=== PATIENT | male | born 1945 | race African-American/Black ===

== ENCOUNTER 2016-05-07 23:22 | Inpatient (IN) | payer OTHER, MEDICARE ==
--- NOTE | ~2016-05-07 | HP ---
History And Physical [place] [address] [place]. [address] NAME: MAR DAWKINS : [birth year] STATUS : ADM IN [facility]#: [id number] AGE: 70 ADM/REG DATE : 05/08/16 MR#: [id number] REPORT SERV DATE: 05/08/16 DICTATED BY: OMARI NOVA DATE: 05/08/16 REPORT STATUS : Draft TRANSCRIBED BY: MODL DATE: 05/08/16 DATE OF ADMISSION: 05/08/2016 CHIEF COMPLAINT: Passing bright red blood per rectum. HISTORY OF PRESENT ILLNESS: This is a 70-year-old male with a history of coronary artery disease with stent, essential hypertension, and hypercholesterolemia, who presents to the emergency room at [facility] with the above-mentioned complaint. History is obtained from the patient and reviewing data available on the [email or web address] system. According to Mr. Dawkins, he had been in usual state of health until two days ago when he suddenly noticed that he had passed some blood with a stool. When he wiped himself, there was bright red blood on the paper as well. This continued into the next day and he had two or three bowel movements mixed with stool without any pain. He states it was again bright red blood. No clots. This was not associated with any abdominal discomfort or pain. He did not have any fevers or chills. When it happened the second day, he decided to come to the emergency room to be evaluated. In the emergency room, initial workup including stool Hemoccult was positive. CT scan of the abdomen and pelvis showed mild acute diverticulitis of the distal colon. Hospitalist Service is asked to admit him for further evaluation and treatment. At the time of my evaluation, he denied any chest pain, palpitations, or orthopnea. He had no cough, hemoptysis, night sweats, or weight loss. He denied any fevers or chills. He had no recent falls or loss of consciousness. No history of nausea, vomiting, diarrhea, hematemesis, or hematuria. No other history of recent travel or exposures other than those mentioned above. PAST MEDICAL HISTORY: Significant for history of coronary artery disease with stent placement, essential hypertension, hypercholesterolemia, and partial nephrectomy. SOCIAL HISTORY: He has about 34-[id number]-dfow history of smoking and continues to do so. Denies alcohol use or recreational drug use. FAMILY HISTORY: Noncontributory. MEDICATIONS AT HOME: Reviewed by me in the chart today and reordered by me. REVIEW OF SYSTEMS: As in history of present illness. All other systems were reviewed in detail and are quite unremarkable. PHYSICAL EXAMINATION: GENERAL: This is a pleasant 70-year-old, not in any acute distress. HEENT: His head is atraumatic, normocephalic. He is alert, awake, oriented to time, place, and person. Pupils are equal, reacting to light and accommodating. External ocular muscles History And Physical [address] [address] NAME: MAR DAWKINS : [birth year] STATUS : ADM IN [facility]#: [id number] AGE: 70 ADM/REG DATE : 05/08/16 MR#: [id number] REPORT SERV DATE: 05/08/16 DICTATED BY: OMARI NOVA DATE: 05/08/16 REPORT STATUS : Draft TRANSCRIBED BY: LES DATE: 05/08/16 are intact. Membranes are moist and pink. Sclerae are nonicteric. NECK: Supple with no jugular venous distention, lymphadenopathy, or thyromegaly. LUNGS: Clear to auscultation with no wheezes, rubs, or crackles. HEART: Sounds were regular with no murmurs, rubs, or gallops. ABDOMEN: Soft, nontender. Bowel sounds are present. EXTREMITIES: Showed no cyanosis, clubbing, or edema. NEUROLOGIC: Grossly intact. He was able to move all four extremities. Higher functions appeared intact. Gait was normal. VITAL SIGNS: His temperature today was 98.3, pulse 75, respirations 16 a minute, blood pressure was 142/78, and oxygen saturations were 96%, breathing 2 L of oxygen via nasal cannula. LABORATORY DATA: Reviewed on the [email or web address] system showed sodium of 141, potassium 4.2, chloride 105, and CO2 of 24. BUN was 37 with a creatinine of 1.79, which has been up and down. His blood glucose was 109. His total bilirubin, ALT, AST, and lipase were all within normal limits. CBC showed a white blood cell count of 13,700, otherwise normal hemoglobin, hematocrit, and platelet count. Urinalysis was not performed today. Films of the CT scan of his abdomen and pelvis were reviewed by me on the PACS today and official Radiology report was also reviewed. There is mild acute diverticulitis of the distal colon. IMPRESSION: 1. Bleeding per rectum. 2. Acute diverticulitis. 3. Gastrointestinal bleeding. 4. Coronary artery disease with stent placement. 5. Essential hypertension. 6. Hypercholesterolemia. 7. Partial nephrectomy. PLAN: We will admit Mr. Dawkins to the Hospitalist Service with telemetry for close monitoring. After cultures are obtained, we will start him on empiric IV antibiotic, clear liquids as tolerated. We will start him on IV fluids for volume resuscitation. Follow hemoglobin and hematocrit levels, type and cross and transfuse as needed. We will consult Gastroenterology Service to see him in the morning. Meanwhile, we will start him on SCDs for DVT prophylaxis while here. Further recommendations will follow after GI has had a chance to review him. Hospitalist Service will be following him during his stay here. /LES Omari Nova M.D. / [id number] History And Physical [address] [address] NAME: MAR DAWKINS : [birth year] STATUS : ADM IN [facility]#: [id number] AGE: 70 ADM/REG DATE : 05/08/16 MR#: [id number] REPORT SERV DATE: 05/08/16 DICTATED BY: OMARI NOVA DATE: 05/08/16 REPORT STATUS : Draft TRANSCRIBED BY: LES DATE: 05/08/16 CC: MD Kishor Taylor MD
--- NOTE | ~2016-05-07 | CN ---
Consultation Report [facility] [address] [facility] [place]. [address] NAME: MAR DAWKINS : [birth year] STATUS : ADM IN [facility]#: [id number] AGE: 70 ADM/REG DATE : 05/08/16 MR#: [id number] REPORT SERV DATE: 05/08/16 DICTATED BY: YUNIEL LOMBARDI DATE: 05/08/16 REPORT STATUS : Draft TRANSCRIBED BY: MODL DATE: 05/08/16 CONSULTATION DATE OF CONSULTATION: 05/08/2016 The patient is admitted by Dr. Omari Stephens, hospitalist. REASON FOR CONSULTATION: The patient admitted with hematochezia and I was consulted for the same. HISTORY OF PRESENT ILLNESS: Mr. Dawkins is a 70-year-old male admitted with above history. He has multiple other medical problems including coronary artery disease with stent placement, essential hypertension, and hypercholesteremia, came with above history. He was in pretty normal health until two days ago when he suddenly noticed that he passed some blood in the stool. The bleeding continued next day also and had multiple bowel movements with it, and that brought him to the emergency room and this admission. Denies any abdominal pain, nausea, or vomiting. No melena. Denies any history of fainting spell. CT scan of the abdomen shows mild acute diverticulitis of the distal colon and that is one of the reasons for admission. On further inquiring, the patient has a history of constipation off and on. The patient had a colonoscopy about three years ago in [place], he was told to have no polyps. PAST MEDICAL HISTORY: Significant for, as mentioned, coronary artery disease with stent placement, hypertension, hypercholesterolemia, and partial nephrectomy. SOCIAL HISTORY: Smoking, 23-cfiw-mngr history and continue to do so. Denies any alcohol or drug use. FAMILY HISTORY: Noncontributory except high blood pressure. MEDICATIONS AT HOME: As per chart. REVIEW OF SYSTEMS: Noted from the chart. Denies any headache. No chest pain. No difficulty breathing. No acute change in vision or hearing. No acute neurological or psychiatric symptoms. No urinary symptoms. All other systems reviewed as per history. PHYSICAL EXAMINATION: VITAL SIGNS: Blood pressure 130/88, temperature 97.4, pulse 52, respirations 16. GENERAL: This is an male, in no acute distress. HEENT: No icterus. Normal conjunctivae. NECK: Supple. No JVD. CHEST: Bilateral good air flow. Normal excursions. HEART: S1, S2. Regular rate and rhythm. No murmur. ABDOMEN: Soft. Bowel sounds present. No hepatosplenomegaly. Very minimal left lower Consultation Report [place] [address] [place]. [address] NAME: MAR DAWKINS : [birth year] STATUS : ADM IN [facility]#: [id number] AGE: 70 ADM/REG DATE : 05/08/16 MR#: [id number] REPORT SERV DATE: 05/08/16 DICTATED BY: YUNIEL LOMBARDI DATE: 05/08/16 REPORT STATUS : Draft TRANSCRIBED BY: MODL DATE: 05/08/16 quadrant tenderness, otherwise benign. No guarding, no rebound tenderness. EXTREMITIES: No clubbing, cyanosis, or edema. NEUROLOGICAL: Alert and oriented. Moving all extremities. PSYCH: Normal affect. LABORATORY DATA: Sodium 141, potassium 4.2, chloride 105, CO2 of 24, BUN 37, creatinine 1.79. ALT, AST, lipase, and bilirubin normal. CBC shows white count 89853, hemoglobin 14.8, hematocrit 41.2, RDW 15.2, platelet 258,000. PT is 14.4 seconds with INR 1.1. PTT 30.[address] of the abdomen and pelvis shows colonic diverticulosis with mild stranding adjacent to the distal descending colon suspicious for mild early acute diverticulitis. There are some postsurgical changes in the lower poles of both kidneys from partial nephrectomies and there are several stable scattered renal cysts, which is bilateral. The patient has hepatic cysts also. Has atherosclerotic vascular disease. Small hiatal hernia. ASSESSMENT: The patient admitted with hematochezia, noted to have mild possible diverticulitis and diverticulosis, most likely bleeding seems to be diverticular bleeding. PLAN: Is to evaluate this history with colonoscopy as soon as possible and advise further after the procedure. RACHEL/LES Yuniel Lombardi M.D. / [id number] CC: Luli OmayraBebeto Christine MD
--- NOTE | ~2016-05-07 | DS ---
Discharge Summary [facility] [address] [facility] [place]. [address] NAME: MAR DAWKINS : 49 STATUS : DIS IN PAT#: [id number] AGE: 70 ADM/REG DATE : 05/08/16 MR#: [id number] REPORT SERV DATE: 05/10/16 DICTATED BY: CHRISTIAN RAMSAY DATE: 05/09/16 REPORT STATUS : Draft TRANSCRIBED BY: MODL DATE: 05/09/16 ADMISSION DATE: 05/08/2016 DISCHARGE DATE: 05/09/2016 REASON FOR ADMISSION: Passing bright red blood per rectum in a 70-year-old with a history of renal cell carcinoma with relatively recent bilateral partial nephrectomies that had began passing blood within the stool and on the tissue paper. DISCHARGE DIAGNOSES: 1. Acute diverticulitis. 2. Bright red blood per rectum. 3. Bilateral renal cell carcinoma, status post bilateral partial nephrectomy. 4. Hypertension. 5. Chronic kidney disease. 6. History of coronary artery disease, status post stent. HOSPITAL COURSE: The patient was admitted for bright red per rectum for a concern of GI bleed. Acute diverticulitis. CT abdomen and pelvis which show diverticulosis with mild stranding adjacent to the distal descending colon suspicious for mild early acute diverticulitis. No evidence for abscess or perforation was seen. He would be started on IV Levaquin and IV Flagyl. He was not having any abdominal pain, just the passing of bright red blood per rectum. GI would be consulted and Dr. Fuller would perform colonoscopy on the 05/08/2016. His impression was severe diverticulosis of the sigmoid colon, erythema seen in association with the diverticular opening. No evidence of diverticular bleed. Moderate diverticulosis of descending, transverse, and ascending colon as well. The ilium was normal, significant looping of the colon, and nonbleeding external and internal hemorrhoids. Recommendations were for sugar-free Metamucil, high-fiber cereals, multiple servings of cooked vegetables today and fresh fruit with avoidance of white flour and caffeine and follow up with the patient in two weeks at his office with Dr. Fuller. The patient's H and H were stable throughout hospitalization. He had no further passing of blood with stool. Admission hemoglobin was 16.3, and at discharge, his hemoglobin is 14.9. DISCHARGE MEDICATIONS: 1. Lipitor 80 mg p.o. at bedtime. 2. Lyrica 75 mg p.o. b.i.d. 3. Tylenol with Codeine p.r.n. 4. Amlodipine 10 mg p.o. daily. 5. Visine tears p.r.n. 6. Aspirin 81 mg p.o. daily. 7. Levaquin 750 mg p.o. daily x5 days. 8. Flagyl 500 mg p.o. q.8 hours x5 more days. 9. Metamucil over the counter. DISCHARGE PLAN: The patient is discharged to home. Complete oral Levaquin and Flagyl Discharge Summary [address] [address] NAME: MAR DAWKINS : 49 STATUS : DIS IN PAT#: [id number] AGE: 70 ADM/REG DATE : 05/08/16 MR#: [id number] REPORT SERV DATE: 05/10/16 DICTATED BY: CHRISTIAN RAMSAY DATE: 05/09/16 REPORT STATUS : Draft TRANSCRIBED BY: LES DATE: 05/09/16 antibiotics and follow up with Dr. Fuller in two weeks and follow up with primary care in one to two weeks as well as follow diet recommendations from Dr. Fuller. SUSANNAH/LES Christian Ramsay APN / [id number] CC: Bebeto Carrington MD Nikhil Shah, M.D.
--- NOTE | ~2016-05-07 | EGD ---
EGD REPORT [facility] [address] [address] NAME: EBER DAWKINS : [birth year] STATUS : ADM IN PAT#: [id number] AGE: 70 ADM/REG DATE : 05/08/16 MR#: [id number] REPORT SERV DATE: 05/08/16 DICTATED BY: VELMA LOMBARDI DATE: 05/08/16 REPORT STATUS : Draft [facility]ANSCRIBED BY: [facility] DATE: 05/08/16 Endoscopy Center Patient Name: Eber Dawkins Date of : 1945 Attending MD: VELMA LOMBARDI MD Procedure Date No Time: 05/08/2016 Procedure: Colonoscopy Indications: Hematochezia Referring MD: Param Olea Medicines: Monitored Anesthesia Care Complications: No immediate complications. Procedure: Pre-Anesthesia Assessment: - ASA Grade Assessment: III - A patient with severe systemic disease. After I obtained informed consent, the scope was passed under direct vision. Throughout the procedure, the patient's blood pressure, pulse, and oxygen saturations were monitored continuously. The PCF [id number] was introduced through the anus and advanced to the terminal ileum, with identification of the appendiceal orifice and IC valve. The colonoscopy was technically difficult and complex due to inadequate bowel prep. The patient tolerated the procedure well. The quality of the bowel preparation was adequate to identify polyps 6 mm and larger in size. Findings: Multiple small and large-mouthed diverticula were found in the sigmoid colon. Erythema was seen in association with the diverticular opening. There was no evidence of diverticular bleeding. Multiple small and large-mouthed diverticula were found in the descending colon, in the transverse colon and in the ascending colon. Erythema was seen in association with the diverticular opening. There was no evidence of diverticular bleeding. The terminal ileum appeared normal. The colon (entire examined portion) revealed moderately excessive looping. Non-bleeding external and internal hemorrhoids were found during retroflexion and were medium-sized. Impression: - Severe diverticulosis in the sigmoid colon. Erythema was seen in association with the diverticular opening. There was no evidence of diverticular bleeding. - Moderate diverticulosis in the descending colon, in the transverse colon and in the ascending colon. EGD REPORT [address] [address] NAME: EBER DAWKINS : [birth year] STATUS : ADM IN PAT#: [id number] AGE: 70 ADM/REG DATE : 05/08/16 MR#: [id number] REPORT SERV DATE: 05/08/16 DICTATED BY: VELMA LOMBARDI DATE: 05/08/16 REPORT STATUS : Draft TRANSCRIBED BY: [employer] DATE: 05/08/16 Erythema was seen in association with the diverticular opening. There was no evidence of diverticular bleeding. - The examined portion of the ileum was normal. - There was significant looping of the colon. - Non-bleeding external and internal hemorrhoids. Recommendation: - Use sugar-free Metamucil one tablespoon PO daily daily. - High fiber cereals once a day. Four servings of cooked vegetables a day. 60 oz of water a day. MOM 30 cc once or twice a week. Avoid white flour foods and caffeine. yogurt and fresh fruits daily. - Return to my office in 2 weeks. Procedure Code(s): --- Professional --- 17280, Colonoscopy, flexible, proximal to splenic flexure; diagnostic, with or without collection of specimen(s) by brushing or washing, with or without colon decompression (separate procedure) Diagnosis Code(s): --- Professional --- K64.8, Other hemorrhoids K57.30, Diverticulosis of large intestine without perforation or abscess without bleeding K92.1, Melena CPT copyright 2013 [employer]. All rights reserved. The codes documented in this report are preliminary and upon health information coder review may be revised to meet current compliance requirements. VELMA LOMBARDI MD 05/08/2016 5:49 PM This report has been signed electronically. Number of Addenda: 0 Note Initiated On: 05/08/2016 3:58 PM Scope Withdrawal Time 0 hours 17 minutes 40 seconds [address] [address]
[~2016-05-07 23:22] MED LIST: ASAB PO; CEFT5 PO; DSS PO; ENDOCET1 TAB PO; EXCEDRIN EXTRA1 EACH PO; LIPITOR80 MG PO; MEDROLPAK4 PO; METHOC500B PO; MOBIC15 MG PO; NEUR100; NEUR100 PO; NORCO1 TA1 PO; NORV10 PO; PCET PO; PROTONIX PO; TEARS NATURA OPH; ULTRAM50 PO; ZOFRAN4 PO
[2016-05-08 00:03] LABS: BASOPHILS 0.2 %; BASOPHILS ABSOLUTE 0.03 10/3/uL (0.0-0.16); EOSINOPHILS 0.9 %; EOSINOPHILS ABSOLUTE 0.13 10/3/uL (0.0-0.53); HEMATOCRIT 44.2 % (40.0-51.0); HEMOGLOBIN 16.3 g/dL (13.6-17.8); IMMATURE GRANULOCYTES 0.4 %; IMMATURE GRANULOCYTES ABSOLUTE 0.05 10/3/uL (0.0-0.11); LYMPHOCYTES 18.9 %; LYMPHOCYTES ABSOLUTE 2.59 10/3/uL (0.67-4.30); MEAN CORPUS HGB CONC 36.9 g/dL (32.0-36.0); MEAN PLATELET VOLUME 10.5 fL (9.2-13.0); MONOCYTES 7.9 %; MONOCYTES ABSOLUTE 1.08 10/3/uL (0.21-1.20); NEUTROPHILS 71.7 %; NEUTROPHILS ABSOLUTE 9.83 10/3/uL (2.02-8.40); PLATELET COUNT 260 10/3/uL (150-400); RBC DISTRIBUTION WIDTH 15.1 % (12.0-16.0); RED CELL COUNT 5.25 10/6/uL (4.7-6.1); WHITE BLOOD CELLS 13.7 10/3/uL (4.5-10.5)
[2016-05-08 00:04] LABS: ER CBC TAT 0 Hrs 05 MinsNP; MANUAL DIFF NO %; MEAN CORPUSCULAR VOLUME 84.2 fL (80-100)
[2016-05-08 00:10] LABS: INTERNATIONAL NORMAL RATI 1.1 UNITS (-); PARTIAL THROMBO TIME 27.9 SEC (22.5-37.2); PROTIME (NOT ORD) 13.8 SEC (12.0-14.5)
[2016-05-08 01:26] LABS: CALCIUM, SERUM 8.5 MG/DL (8.5-10.4); CHLORIDE, SERUM 105 MMOL/L (96-112); CO2 (CARBON DIOXIDE) 24 MMOL/L (24-34); CREATININE 1.79 MG/DL (0.70-1.30); GFR AFRICAN AMERICAN 44 ML/MIN (>=60); GFR NON AFRICAN AMERICAN 38 ML/MIN (>=60); GLUCOSE, SERUM 109 MG/DL (60-99); POTASSIUM, SERUM 4.2 MMOL/L (3.5-5.3); SGOT(AST) 11 U/L (5-40); SGPT(ALT) 19 U/L (5-65); SODIUM, SERUM 141 MMOL/L (135-148)
[2016-05-08 01:28] LABS: A/G RATIO 0.9 (0.7-1.9); ALBUMIN 3.6 G/DL (3.5-5.0); ALKALINE PHOSPHATASE 111 U/L (45-117); BUN (BLOOD UREA NITROGEN) 37 MG/DL (6-23); TOTAL BILIRUBIN 0.4 MG/DL (0-1.2); TOTAL PROTEIN 7.6 G/DL (6.0-8.5)
[2016-05-08] MEDS ORDERED: EPIPEN0.3 IM (03:11)
[2016-05-08] MEDS ORDERED: LIPITOR80 MG PO (03:11)
[2016-05-08] MEDS ORDERED: NORV10 PO (03:12)
[2016-05-08] MEDS ORDERED: LYRICA75 PO (03:12)
[2016-05-08] MEDS ORDERED: T3 PO (03:12)
[2016-05-08] MEDS ORDERED: VISINE TEARS15 ML OPH (03:13)
[2016-05-08] MEDS ORDERED: ASAB PO (03:14)
[2016-05-08 05:34] LABS: BASOPHILS 0.2 %; BASOPHILS ABSOLUTE 0.03 10/3/uL (0.0-0.16); EOSINOPHILS 1.5 %; EOSINOPHILS ABSOLUTE 0.19 10/3/uL (0.0-0.53); IMMATURE GRANULOCYTES 0.6 %; IMMATURE GRANULOCYTES ABSOLUTE 0.08 10/3/uL (0.0-0.11); LYMPHOCYTES 22.4 %; LYMPHOCYTES ABSOLUTE 2.83 10/3/uL (0.67-4.30); MEAN CORPUS HGB CONC 36.6 g/dL (32.0-36.0); MEAN CORPUSCULAR HEMOGLOB 30.8 pg (26.0-34.0); MEAN CORPUSCULAR VOLUME 84.2 fL (80-100); MEAN PLATELET VOLUME 10.7 fL (9.2-13.0); MONOCYTES 6.3 %; NEUTROPHILS ABSOLUTE 8.73 10/3/uL (2.02-8.40); PLATELET COUNT 258 10/3/uL (150-400); RBC DISTRIBUTION WIDTH 15.2 % (12.0-16.0); RED CELL COUNT 4.87 10/6/uL (4.7-6.1); WHITE BLOOD CELLS 12.7 10/3/uL (4.5-10.5)
[2016-05-08 05:43] LABS: MANUAL DIFF NO %
[2016-05-08 05:48] LABS: BUN (BLOOD UREA NITROGEN) 33 MG/DL (6-23); CALCIUM, SERUM 8.5 MG/DL (8.5-10.4); CHLORIDE, SERUM 108 MMOL/L (96-112); CO2 (CARBON DIOXIDE) 23 MMOL/L (24-34); CREATININE 1.41 MG/DL (0.70-1.30); GFR AFRICAN AMERICAN 59 ML/MIN (>=60); GFR NON AFRICAN AMERICAN 51 ML/MIN (>=60); GLUCOSE, SERUM 102 MG/DL (60-99); PHOSPHORUS, SERUM 3.1 MG/DL (2.5-4.5); POTASSIUM, SERUM 4.2 MMOL/L (3.5-5.3); SODIUM, SERUM 142 MMOL/L (135-148)
[2016-05-08 06:19] LABS: PLATELET ESTIMATE ADQ (ADEQUATE)
[2016-05-08 06:21] LABS: RBC MORPHOLOGY NORM (NORMAL)
[2016-05-08 11:27] LABS: HEMATOCRIT 41.2 % (40.0-51.0); HEMOGLOBIN 14.8 g/dL (13.6-17.8)
[2016-05-08 11:34] LABS: INTERNATIONAL NORMAL RATI 1.1 UNITS (-); PARTIAL THROMBO TIME 30.5 SEC (22.5-37.2); PROTIME (NOT ORD) 14.4 SEC (12.0-14.5)
[2016-05-08 21:02] LABS: HEMATOCRIT 39.1 % (40.0-51.0); HEMOGLOBIN 13.7 g/dL (13.6-17.8)
[2016-05-09 07:20] LABS: BASOPHILS 0.3 %; BASOPHILS ABSOLUTE 0.03 10/3/uL (0.0-0.16); EOSINOPHILS 1.2 %; EOSINOPHILS ABSOLUTE 0.14 10/3/uL (0.0-0.53); HEMATOCRIT 42.9 % (40.0-51.0); HEMOGLOBIN 14.9 g/dL (13.6-17.8); IMMATURE GRANULOCYTES 0.4 %; IMMATURE GRANULOCYTES ABSOLUTE 0.05 10/3/uL (0.0-0.11); LYMPHOCYTES 23.4 %; LYMPHOCYTES ABSOLUTE 2.76 10/3/uL (0.67-4.30); MEAN CORPUSCULAR HEMOGLOB 29.6 pg (26.0-34.0); MEAN CORPUSCULAR VOLUME 85.1 fL (80-100); MEAN PLATELET VOLUME 10.5 fL (9.2-13.0); MONOCYTES 8.2 %; MONOCYTES ABSOLUTE 0.97 10/3/uL (0.21-1.20); NEUTROPHILS 66.5 %; NEUTROPHILS ABSOLUTE 7.84 10/3/uL (2.02-8.40); PLATELET COUNT 255 10/3/uL (150-400); RBC DISTRIBUTION WIDTH 15.4 % (12.0-16.0); RED CELL COUNT 5.04 10/6/uL (4.7-6.1); WHITE BLOOD CELLS 11.8 10/3/uL (4.5-10.5)
[2016-05-09 07:34] LABS: CALCIUM, SERUM 8.8 MG/DL (8.5-10.4); CHLORIDE, SERUM 105 MMOL/L (96-112); CREATININE 1.27 MG/DL (0.70-1.30); GFR AFRICAN AMERICAN 67 ML/MIN (>=60); GFR NON AFRICAN AMERICAN 58 ML/MIN (>=60); GLUCOSE, SERUM 92 MG/DL (60-99); MANUAL DIFF NO %; MEAN CORPUS HGB CONC 34.7 g/dL (32.0-36.0); POTASSIUM, SERUM 4.1 MMOL/L (3.5-5.3); SODIUM, SERUM 142 MMOL/L (135-148)
[2016-05-09 07:35] LABS: BUN (BLOOD UREA NITROGEN) 18 MG/DL (6-23); CO2 (CARBON DIOXIDE) 28 MMOL/L (24-34)
[2016-05-09] MEDS ORDERED: FLAG500TAB PO (11:42)
[2016-05-09] MEDS ORDERED: LEVAQUIN750 MG PO (11:42)
[2016-05-09] MEDS ORDERED: METPAKSF PO (11:43)
== END 2016-05-09 12:42 | disposition home or self-care (01) | DRG 392 ==
LOC: ER 23:22 → 7NO 05-08 03:00
PROVIDERS: Internal Medicine Gastroenterology; Internal Medicine Pulmonary Disease; Nurse Practitioner Acute Care; Nurse Practitioner Gerontology
PROC: 0DJD8ZZ Inspection of Lower Intestinal Tract, Via Natural or Artificial Opening Endoscopic (ICD-10-PCS; principal; 2016-05-08 17:09)
DX: K57.30 Diverticulosis of large intestine without perforation or abscess without bleeding (principal); I12.9 Hypertensive chronic kidney disease with stage 1 through stage 4 chronic kidney disease, or unspecified chronic kidney disease; K92.1 Melena; I25.10 Atherosclerotic heart disease of native coronary artery without angina pectoris; Z95.5 Presence of coronary angioplasty implant and graft; E78.00 Pure hypercholesterolemia, unspecified; F17.210 Nicotine dependence, cigarettes, uncomplicated; K64.8 Other hemorrhoids; N18.9 Chronic kidney disease, unspecified; Z85.528 Personal history of other malignant neoplasm of kidney
CPT/HCPCS: 36415; 74176; 80048; 80053; 83605; 83735; 84100; 85014; 85018; 85025; 85610; 85730; 86850; 86900; 86901; 87040; 93005; 96365; 96375; 99285; A9270-GY; J1956; J1980